=== PATIENT | male | born 1980 | race Caucasian/White ===

== ENCOUNTER 2024-02-09 15:38 | Emergency (ER) | payer BC ==
[~2024-02-09] VITALS: Ht 177.8 cm; Wt 95.3 kg
[2024-02-09] MEDS ORDERED: LIDOCAINE 1% INJ 50 ML MDV IJ ONE (15:57)
[2024-02-09] MEDS ORDERED: TDAP [DIPH/PERTUSSIS/TET] 0.5 ML VIAL IM ONE (15:58)
[2024-02-09] MEDS: LIDOCAINE HCL/PF 1% 30 ML VIAL TP ONE (16:06)
[2024-02-09] MEDS: TDAP [DIPH/PERTUSSIS/TET] 0.5 ML VIAL IM ONE (16:06)
[2024-02-09] MEDS ORDERED: CEPH-570 PO (17:04)
[2024-02-09 17:11] VITALS: BP 138/86; TEMP 98.5; O2SAT 98
== END 2024-02-09 17:12 | disposition home or self-care (01) ==
LOC: ER 15:52
DX: S01.81XA Laceration without foreign body of other part of head, initial encounter (principal); R51.9 Headache, unspecified; W22.8XXA Striking against or struck by other objects, initial encounter; Y93.89 Activity, other specified; Y92.89 Other specified places as the place of occurrence of the external cause; Y99.8 Other external cause status
CPT/HCPCS: 12013; 70450; 90471; 90715; 99285; J3490

== ENCOUNTER 2024-02-17 14:19 | Emergency (ER) | payer BC ==
[~2024-02-17] VITALS: Ht 177.8 cm; Wt 95.3 kg
[~2024-02-17 14:19] MED LIST: CEPH-570 PO
[2024-02-17 14:25] VITALS: BP 147/90; TEMP 98.2
[2024-02-17 15:06] VITALS: O2SAT 95
== END 2024-02-17 15:07 | disposition home or self-care (01) ==
LOC: ER 14:25
DX: S01.112D Laceration without foreign body of left eyelid and periocular area, subsequent encounter (principal); Z48.02 Encounter for removal of sutures; X58.XXXD Exposure to other specified factors, subsequent encounter